=== PATIENT | male | born 1965 | race American Indian/Alaskan Native ===

== ENCOUNTER 2021-12-07 09:55 | Emergency (ER) | payer OTHER ==
[2021-12-07 10:39] VITALS: BP 122/79
[2021-12-07] MEDS ORDERED: ALUM-MAG HYDROXIDE-SIMETHICONE 200-200-20MG/5ML ORAL LIQD 30 ML PO ONE (11:34)
[2021-12-07] MEDS ORDERED: ONDANSETRON 4 MG ODT TAB PO ONE (11:34)
[2021-12-07] MEDS ORDERED: DICYCLOMINE 10 MG/5 ML ORAL LIQD PO ONE (11:35)
[2021-12-07] MEDS ORDERED: LIDOCAINE VISCOUS 2% 15 ML ORAL LIQD PO ONE (11:35)
[2021-12-07 12:48] LABS: Hematocrit 45.4 % (35.5-45.6); Hemoglobin 14.3 gm/dl (11.8-15.2); Mean Corpuscular HGB Conc 32 % (32-34); Mean Corpuscular Volume 83 fl (84-94); Platelet Count 275 K/mm3 (140-440); Red Blood Count 5.45 M/mm3 (3.65-5.03); Red Cell Distribution Width 15.6 % (13.2-15.2)
[2021-12-07 13:24] LABS: Alanine Aminotransferase 12 units/L (7-56); Albumin 4.3 g/dL (3.9-5); BUN/Creatinine Ratio 12; Blood Urea Nitrogen 11 mg/dL (9-20); Calcium 9.5 mg/dL (8.4-10.2); Hemolysis Index 36
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
== END 2021-12-07 15:08 | disposition home or self-care (01) ==
LOC: ED 09:55
DX: R10.13 Epigastric pain (principal); M19.90 Unspecified osteoarthritis, unspecified site; F17.200 Nicotine dependence, unspecified, uncomplicated
CPT/HCPCS: 36415; 80053; 83690; 85027; 99283; J3490; Q0162

== ENCOUNTER 2022-02-26 09:03 | Outpatient (CLI) | payer OTHER ==
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
--- NOTE | 2022-02-26 10:51 | XRay Report ---
Lumbar spine, 3 views HISTORY: Pain COMPARISON: None FINDINGS: Mild right convex curvature of the lumbar spine. Alignment is normal. Vertebral body height s are maintained. No evidence of fracture. There is moderate disc space height loss at L3-L4 and L4-L 5 as well as moderate lower lumbar facet arthropathy. SI joints are intact. No focal soft tissue abno rmality. IMPRESSION: No acute findings. Degenerative changes, as above. Signer Name: Sergey Escamilla MD Signed: 02/26/2022 10:46 AM Workstation Name: [id number]
== END 2022-02-26 09:04 | disposition home or self-care (01) ==
LOC: XRAY 09:03
PROVIDERS: ATTEND Internal Medicine
DX: M51.37 Other intervertebral disc degeneration, lumbosacral region (principal); M16.12 Unilateral primary osteoarthritis, left hip; M25.562 Pain in left knee
CPT/HCPCS: 72100